=== PATIENT | male | born 1960 | race Caucasian/White ===

== ENCOUNTER 2020-12-25 19:31 | Emergency (ER) | payer BC, OTHER ==
[2020-12-25 20:25] LABS: HEMOGLOBIN 15.5 gm/dl (14.0-17.5); RED BLOOD COUNT 5.35 M/UL (4.20-5.50); WHITE BLOOD COUNT 9.7 K/UL (4.5-11.0)
[2020-12-25 20:48] LABS: BUN/CREATININE RATIO 13 (0-10)
== END 2020-12-25 23:34 | disposition home or self-care (01) ==
LOC: ER1 19:31
PROVIDERS: Emergency Medicine
DX: R10.13 Epigastric pain (principal); E87.6 Hypokalemia; I10 Essential (primary) hypertension
CPT/HCPCS: 36415; 80053; 81001; 82550; 82553; 83690; 83874; 84484; 85025; 93005; 96374; 96375; 99284; J2405; Q9967

== ENCOUNTER → 2021-04-11 | Outpatient (CLI) | payer BC, OTHER ==
[2021-04-11 09:41] LABS: HEMOGLOBIN 15.8 gm/dl (14.0-17.5); RED BLOOD COUNT 5.39 M/UL (4.20-5.50); WHITE BLOOD COUNT 7.9 K/UL (4.5-11.0)
[2021-04-11 10:15] LABS: BUN/CREATININE RATIO 17 (0-10)
== END ==
LOC: LAB 09:15
PROVIDERS: Internal Medicine
DX: R60.0 Localized edema (principal); M79.604 Pain in right leg; I10 Essential (primary) hypertension; E55.9 Vitamin D deficiency, unspecified; E53.8 Deficiency of other specified B group vitamins
CPT/HCPCS: 36415; 80048; 80061; 80076; 82607; 84443; 85025; 93971

== ENCOUNTER 2022-01-13 15:04 | Emergency (ER) | payer BC ==
[2022-01-13 16:31] LABS: HEMOGLOBIN 15.2 gm/dl (14.0-17.5); RED BLOOD COUNT 5.25 M/UL (4.20-5.50); WHITE BLOOD COUNT 9.4 K/UL (4.5-11.0)
[2022-01-13 16:56] LABS: BUN/CREATININE RATIO 12 (0-10)
[2022-01-13] MEDS ORDERED: TORADOL 10 MG T10 MG PO (17:31)
[2022-01-13] MEDS ORDERED: ZOFRAN 4 MG TAB4 MG PO (17:31)
== END 2022-01-13 18:00 | disposition home or self-care (01) ==
LOC: ER1 15:04
PROVIDERS: Nurse Practitioner
DX: N20.0 Calculus of kidney (principal); I10 Essential (primary) hypertension; Z95.5 Presence of coronary angioplasty implant and graft
CPT/HCPCS: 80053; 81001; 85025; 96372; 99284; J1885

== ENCOUNTER → 2022-07-28 | Outpatient (CLI) | payer BC ==
[~2022-07-28] MED LIST: TORADOL 10 MG T10 MG PO; ZOFRAN 4 MG TAB4 MG PO
== END ==
LOC: KOH-I 13:04
DX: M54.2 Cervicalgia (principal); M47.812 Spondylosis without myelopathy or radiculopathy, cervical region; M47.26 Other spondylosis with radiculopathy, lumbar region; N20.0 Calculus of kidney
CPT/HCPCS: 72050; 72110